=== PATIENT | female | born 1980 | race Caucasian/White ===

== ENCOUNTER 2025-04-19 20:41 | Emergency (ER) | payer MEDICAID ==
[~2025-04-19] VITALS: Ht 170.2 cm; Wt 87.0 kg
[2025-04-19 21:01] VITALS: O2SAT 100
[2025-04-19] MEDS: KETOROLAC 15MG/ML VIAL IM NR (23:50)
[2025-04-19] MEDS: KETOROLAC 15MG/ML VIAL IM ONE (23:53)
[2025-04-20] MEDS ORDERED: LIDO-53 TP (00:49)
[2025-04-20] MEDS ORDERED: NAPR-1176 MT (00:49)
[2025-04-20 01:13] VITALS: BP 125/80; PULSE 67; RESP 15; TEMP 36.8; O2SAT 100
== END 2025-04-20 01:13 | disposition home or self-care (01) ==
LOC: ER 20:41
DX: M25.552 Pain in left hip (principal); J45.909 Unspecified asthma, uncomplicated; Z98.890 Other specified postprocedural states; Z88.5 Allergy status to narcotic agent
CPT/HCPCS: 81025; 73502; 72192; 96372; 99285; J1885; Z7610; A4606